=== PATIENT | female | born 1965 | race Caucasian/White ===

== ENCOUNTER → 2016-08-05 | Outpatient (CLI) | payer BC, MEDICARE ==
[~2016-08-05] MED LIST: ALEVE220 MG PO; ASPIR-TRIN325 M1 PO; BENADRYL50 MG PO; BIOTIN10000 MCG PO; CELEXA40 MG PO; CLARITIN,ALAVAR10 MG PO; CLARITIN10 M2 PO; COLACE100 MG PO; COMPAZINE10 MG PO; Cymbalta PO; DAILY VALUE1 EACH PO; DECADRON4 MG PO; DULCOLAX5 MG PO; HYZAAR 100-21 TABLET PO; IMODIUM A-D2 MG PO; KYTRIL1 MG PO; LOPRESSOR25 MG PO; LUNESTA3 MG PO; METOPROLOL SUCC25 MG PO; MYCOSTATIN5 ML PO; NITROSTAT,NITR0.4 M1 SL; PROTONIX40 MG PO; Pepcid PO; SINEQUAN10 MG PO; SINEQUAN25 MG PO; TOPAMAX50 MG PO; Toprol XL PO; Tylenol Extra Streng PO; Tylenol Regular Stre PO; VALTREX50 MG/ML PO; VITAMIN D2000 UNIT PO; VITAMIN D5000 INTUN PO; ValTRex PO; XANAX0.5 MG PO; Xanax PO; ZANTAC150 M1 PO; [UNRECOGNIZED DRUG - OTHER] PO
== END | disposition home or self-care (01) ==
LOC: CDC 11:11
DX: I45.9 Conduction disorder, unspecified (principal); E66.01 Morbid (severe) obesity due to excess calories
CPT/HCPCS: 93000

== ENCOUNTER → 2016-08-10 | Outpatient (CLI) | payer BC, OTHER ==
[~2016-08-10] VITALS: Ht 168.9 cm; Wt 131.5 kg
== END | disposition home or self-care (01) ==
LOC: AMB 12:17
PROC: 0DJ08ZZ Inspection of Upper Intestinal Tract, Via Natural or Artificial Opening Endoscopic (ICD-10-PCS; principal; 2016-08-10)
DX: K21.9 Gastro-esophageal reflux disease without esophagitis (principal); K29.70 Gastritis, unspecified, without bleeding; I10 Essential (primary) hypertension; J45.909 Unspecified asthma, uncomplicated; E66.01 Morbid (severe) obesity due to excess calories; Z68.42 Body mass index [BMI] 45.0-49.9, adult
CPT/HCPCS: 94640; J2250; J3010

== ENCOUNTER 2016-09-08 09:12 | Inpatient (IN) | payer BC, OTHER ==
[~2016-09-08] VITALS: Ht 170.2 cm; Wt 129.7 kg
[~2016-09-08 09:12] MED LIST changes: +ADVAIR 250/501 DISK IH; +BIOTIN PLUS KE1 EACH PO; +PREDNISONE5 M1 PO; +TOPROL XL25 MG PO; +VITAMIN D32000 UNI1 PO
[2016-09-08 09:49] LABS: POINT-OF-CARE METER ID UU14174212
[2016-09-08 09:57] VITALS: BP 167/91
[2016-09-08 15:55] VITALS: BP 123/81
[2016-09-08 19:07] VITALS: BP 147/79
[2016-09-08 23:02] VITALS: BP 173/83
[2016-09-09 03:02] VITALS: BP 164/92
[2016-09-09 06:57] LABS: HEMATOCRIT 39.5 % (36.0-46.0); MCH 31.1 PG (29.0-34.0); MCHC 33.4 G/DL (30.0-36.0); MCV 93.2 FL (83-99); MEAN PLAT.VOLUME 9.1 uM^3 (9.5-12.4); PLATELET COUNT 352 K/uL (156-360); RBC DIS.WIDTH-CV 13.2 % (11.8-14.6); RBC DIS.WIDTH-SD 44.7 % (39-53); RED BLOOD COUNT 4.24 M/uL (3.80-5.20)
[2016-09-09 07:20] LABS: ANION GAP 11 MEQ/L (2-14); CHLORIDE 101 MEQ/L (99-109); GFR ESTIMATE (CALCULATED) > 59 mL/min/; GLUCOSE 113 mg/dL (70-99); MAGNESIUM 1.6 mg/dl (1.3-2.7); POTASSIUM 3.8 MEQ/L (3.7-5.4); SAMPLE HEMOLYSIS CHECK 0; SAMPLE ICTERIC CHECK 0; SAMPLE LIPEMIA CHECK 0; SODIUM 138 MEQ/L (136-147); UREA NITROGEN (BUN) 8 mg/dL (9-23)
[2016-09-09] MEDS ORDERED: HYDROCODON-ACE1 EAC7 PO (07:48)
[2016-09-09 08:31] VITALS: BP 149/84
[2016-09-09 11:33] LABS: POINT-OF-CARE METER ID UU14162508
[2016-09-09 12:36] VITALS: BP 170/82
[2016-09-09 16:27] VITALS: BP 161/84
[2016-09-09 21:02] VITALS: BP 183/88
[2016-09-10 00:04] VITALS: BP 194/92
[2016-09-10 00:28] LABS: POINT-OF-CARE METER ID UU14162508
[2016-09-10 01:46] VITALS: BP 137/88
[2016-09-10 04:51] VITALS: BP 160/77
[2016-09-10 06:30] LABS: POINT-OF-CARE METER ID UU14162508
[2016-09-10 07:04] LABS: ANION GAP 7 MEQ/L (2-14); CHLORIDE 102 MEQ/L (99-109); GFR ESTIMATE (CALCULATED) > 59 mL/min/; GLUCOSE 105 mg/dL (70-99); MAGNESIUM 1.7 mg/dl (1.3-2.7); POTASSIUM 3.9 MEQ/L (3.7-5.4); SAMPLE HEMOLYSIS CHECK 0; SAMPLE ICTERIC CHECK 0; SAMPLE LIPEMIA CHECK 0; SODIUM 139 MEQ/L (136-147); UREA NITROGEN (BUN) 5 mg/dL (9-23)
[2016-09-10 07:08] LABS: HEMATOCRIT 38.2 % (36.0-46.0); MCV 93.9 FL (83-99); MEAN PLAT.VOLUME 8.9 uM^3 (9.5-12.4); PLATELET COUNT 282 K/uL (156-360); RBC DIS.WIDTH-CV 13.4 % (11.8-14.6); RBC DIS.WIDTH-SD 45.8 % (39-53); RED BLOOD COUNT 4.07 M/uL (3.80-5.20); WHITE BLOOD COUNT 10.6 K/uL (4.1-10.2)
[2016-09-10] MEDS ORDERED: ATARAX,VISTARIL25 MG PO (08:21)
[2016-09-10] MEDS ORDERED: ZOFRAN ODT4 MG PO (08:21)
[2016-09-10 08:43] VITALS: BP 155/99
== END 2016-09-10 09:07 | disposition home or self-care (01) | DRG 621 ==
LOC: 2EAST 09:12 → 2SOUTH 09:12 → 2EAST 16:19
PROVIDERS: Surgery
PROC: 0DB64Z3 Excision of Stomach, Percutaneous Endoscopic Approach, Vertical (ICD-10-PCS; principal; 2016-09-08)
DX: E66.01 Morbid (severe) obesity due to excess calories (principal); Z68.42 Body mass index [BMI] 45.0-49.9, adult; I48.0 Paroxysmal atrial fibrillation; I10 Essential (primary) hypertension; K21.9 Gastro-esophageal reflux disease without esophagitis; J45.909 Unspecified asthma, uncomplicated; M19.90 Unspecified osteoarthritis, unspecified site; K58.9 Irritable bowel syndrome, unspecified; F41.8 Other specified anxiety disorders; E55.9 Vitamin D deficiency, unspecified; R73.03 Prediabetes; M32.9 Systemic lupus erythematosus, unspecified; Z85.3 Personal history of malignant neoplasm of breast; Z90.13 Acquired absence of bilateral breasts and nipples; Z90.710 Acquired absence of both cervix and uterus; Z79.52 Long term (current) use of systemic steroids; Z92.3 Personal history of irradiation; Z92.21 Personal history of antineoplastic chemotherapy
CPT/HCPCS: 80048; 82948; 83735; 84100; 85027; 94640; 94640 76; 94799; 99202; J0131; J0330; J0690; J1100; J1170; J1644; J1650; J1815; J1885; J2250; J2405; J2710; J3010; J3480; J7120; Q0177; S0020